=== PATIENT | female | born 1965 | race Caucasian/White ===

== ENCOUNTER → 2016-05-19 | Outpatient (REF) | payer OTHER ==
[2016-05-19 11:08] LABS: BASOPHILS % (AUTO) 1 % (0-2); BILIRUBIN,URINE Negative (Negative); CLARITY,URINE Clear; COLOR,URINE Yellow; EOSINOPHILS # (AUTO) 0.2 10^3uL; EOSINOPHILS % (AUTO) 3 % (0-4); GLUCOSE, URINE (UA) Negative (Negative); LEUKOCYTE ESTERASE, URINE 1+ (Negative); LYMPHOCYTES # (AUTO) 2.1 X10^3; MEAN CORPUSCULAR HEMOGLOBIN 31.2 PG (26.0-34.0); MEAN CORPUSCULAR HGB CONC 33.5 g/dL (31.0-37.0); MEAN CORPUSCULAR VOLUME 93 FL (80-100); MONOCYTES # (AUTO) 0.6 X10^3; MONOCYTES % (AUTO) 9 % (3-11); NEUTROPHILS # (AUTO) 3.4 X10^3; NEUTROPHILS % (AUTO) 53 % (51-67); PLATELET COUNT 224 10^3uL (150-450); UROBILINOGEN,URINE 0.2 mg/dL (0.2-1.0); WHITE BLOOD COUNT 6.41 10^3uL (4.0-11.0)
[2016-05-19 11:23] LABS: ALBUMIN 4.2 g/dL (3.4-5.0); ANION GAP 14.3 MEQ/L (3-15); CALCULATED IONIZED CALCIUM 4.2 mg/dL (3.8-4.6); TOTAL PROTEIN 7.2 g/dL (6.4-8.5)
[2016-05-19 11:25] LABS: RBC,URINE 0-2 /HPF; URINE CENTRIFUGED VOLUME 12 mL
== END ==
LOC: LAB 10:34
PROVIDERS: ATTEND Nurse Practitioner Family
DX: Z01.818 Encounter for other preprocedural examination (principal); R82.90 Unspecified abnormal findings in urine
CPT/HCPCS: 80053; 81003; 81015; 85025; 87088

== ENCOUNTER → 2016-06-03 | Outpatient (REF) | payer OTHER ==
[2016-06-03 12:04] LABS: URINE CENTRIFUGED VOLUME 12 mL
== END ==
LOC: LAB 11:31
PROVIDERS: ATTEND Nurse Practitioner Family
DX: R32 Unspecified urinary incontinence (principal)
CPT/HCPCS: 81015; 87088

== ENCOUNTER 2016-07-04 14:00 | Outpatient (RCR) | payer OTHER ==
--- NOTE | 2016-06-08 10:22 | PT/OT/ST INITIAL EVALUATION ---
[facility]. PHYSICAL/OCCUPATIONAL THERAPY [address] [place], [place] [id number] PLAN OF CARE/ASSESSMENT FOR OUTPATIENT REHABILITATION (Complete for Initial Claims Only) 1. PATIENT'S NAME Shira Lopez 2. ACC # [id number] 3. REFERRING PHYSICIAN Dr. Ayala 4. PRIMARY DX After care following joint replacement and placement of left artificial knee. 5. SECONDARY DX Left knee pain, left knee stiffness, weakness and difficulty walking. 6. ONSET DATE Surgery 05/30/2016 7. REFERRAL DATE 06/01/2016 8. SOC. DATE/TIME 06/06/2016 2:01 p.m. to 3:02 p.m. 9. CHARGES PT evaluation low complexity 28847 Therapeutic exercise 09023, 2 units Vasopneumatic device 47793, 1 unit. 10. G. CODES NA 11. PRIOR LEVEL OF FUNCTION; PERTINENT HISTORY (Prior therapy results, reason for referral.) S: Prior to therapy the patient consented to today's evaluation and treatment. The patient is a 50-year-old female referred to physical therapy by Dr. Ayala to address functional limitations secondary to left total knee replacement on 05/30/2016. Current complaint/Mechanism of injury: the patient reports that she fell down her stairs February 2016 and tore her meniscus. She did okay up until April 2016 and went to see the doctor and he stated that her left knee was bone on bone. The patient currently complains of having left quad and anterior knee pain. Functional performance/Prior level of function: The patient reports that she was off work and using a cane about 2 weeks prior to surgery. Has had decreased functioning since April 2016. Occupational and social history: The patient works at [employer] in the [employer] room and it requires her to do a lot of walking and standing. The patient works 8 hour days and is currently off work due to knee replacement. Therapy History: None recently. The patient rates the current pain level at 8 to 10/10 and describes the pain as a deep aching, burning and throbbing pain. Obstacles to delivery of care: None noted. Aggravating factors include getting up from a sitting position. Relieving factors: She states that she feels better after she has walked a few steps and taking medication. Diagnostic testing: None noted. Past medical history includes hypertension and depression, both of which are controlled. Past surgical history includes left knee scope in 2003, right shoulder rotator cuff repair 2005, low back diskectomy at L4-5 in 1999 and the left knee replacement on 05/30/2016. Current medications: Aspirin, Lisinopril, Effexor, Tylenol Arthritis, and 2 ibuprofen. The patient has a prescription for tramadol, but has not taken any yet. She stopped taking Percocet due to her bladder losing control when standing up and the patient did speak to Dr. Ayala about this, which was when the switch to tramadol occurred. Leisure activities: The patient likes to camp and hike. Activity level: Listed as medium. Health rating: Overall health rating is listed as fair. The patient's goal for physical therapy is to be able to walk. 12. INITIAL ASSESSMENT/SAFETY PRECAUTIONS/MEDICAL COMPLICATIONS (Level of function at start of care. Be specific, use objective measures, list problems.) O: APPEARANCE, OBSERVATION AND GAIT: The patient presents to physical therapy with the diagnosis of a left total knee arthroplasty. The patient presents to the clinic using a front-wheeled walker. The patient states that she lives with her fiance in a ranch house with 2 steps into the house without a rail and she is ascending and descending the steps safely. The patient has her washer and dryer in the basement where here casey is doing the laundry. The patient has compression stockings on that go below her knee and she has noticeable swelling and it was suggested that she use her longer compression stockings that go above her knee. The patient able to get legs on and off the table by herself, but has significant extensor lag. PALPATION: The patient was tender on the anterior left knee. SPECIAL TESTS: Bilateral Homans negative. RANGE OF MOTION/FLEXIBILITY: Active range of motion of the left knee 88 degrees of flexion -7 degrees of extension. Right knee 120 degrees of flexion 0 degrees of extension. STRENGTH: Strength was not formally tested, but upon observation, the patient's left lower extremity rated at a 3-/5. TODAY'S TREATMENT: Included the initial PT evaluation followed by therapeutic exercise and vasopneumatic device. 13. INITIAL POC: (Specify procedures, modalities, short and senior care goals) A: The patient presents to physical therapy with the diagnosis of left total knee arthroplasty performed on 05/30/2016. The patient would benefit from physical therapy in order to help control pain, swelling and increase range of motion and strength in order to be able to return to her previous activities without deviation including to be able to return to work with the proper mechanics. PROGNOSIS: The patient has a good prognosis for increased active range of motion with decreased pain with regular therapy attendance and compliance with prescribed home exercise program. CONTRAINDICATIONS, PRECAUTIONS AND OBSTACLES TO TREATMENT: No contraindications, precautions, or obstacles known at this time GOALS: 1. The patient is to have a decrease in pain of the left knee to less than or equal to 2/10 in 8 weeks in order to return to work without deviation. 2. The patient is to have an increase in left knee active range of motion to 0 to 120 degrees in 8 weeks in order to return to light housework and work without deviation. 3. The patient is to have an increase in left knee manual muscle testing to 4+/5 in 8 weeks in order to ascend and descend steps and to squat for return to work without deviation. 4. The patient is to be independent with a progressive home exercise program. The prognosis and goals were discussed with the patient, as well as the expected outcome and possible risks. The patient agreed to undergo PT evaluation and further treatment. P: Plan to treat this patient 2 times a week for 8 weeks to address functional limitations secondary to left total knee arthroplasty including left knee pain, left knee stiffness, weakness and difficulty walking. Treatment to include modalities for pain and inflammation, manual therapy interventions, therapeutic exercise, active and passive range of motion, gait training, balance and proprioceptive training, neural reeducation and patient education and prescription of progressive home exercise program as tolerable. 15. PHYSICIAN SIGNATURE ? ON FILE OR ENTER HERE: 16. DATE: I certify the need for these services furnished under this plan of care and if for partial hospitalization. 17. CERTIFICATION FROM THROUGH
== END 2016-07-21 12:00 | disposition home or self-care (01) ==
LOC: PT 14:00
PROVIDERS: ATTEND Orthopaedic Surgery
DX: Z47.1 Aftercare following joint replacement surgery (principal)